=== PATIENT | male | born 1960 | race Caucasian/White ===

== ENCOUNTER 2021-01-31 13:39 | Emergency (ER) | payer OTHER ==
--- NOTE | 2021-01-31 14:57 | CR ---
Lumbar spine: AP, lateral and coned-down lateral views centered to the lumbosacral junction were obtained. Comparison: No prior lumbar spine imaging is available. Vertebral body heights and disc spaces are maintained. Minimal scattered endplate osteophytes are seen. Pedicles are intact. Visualized transverse and spinous processes are intact. Degenerative change appears to be present within the lower apophyseal joints at L5-S1. Sacroiliac joints are normal. Vascular calcification is seen within the aortoiliac vessels. Impression: 1. Slight scattered endplate osteophytes and apophyseal degenerative change at L5-S1. Vascular calcification. 2. Three-view lumbar spine study is otherwise unremarkable. Diagnostic code #2
[2021-01-31] MEDS ORDERED: predniSONE 20 MG Tab PO ONE (15:11)
--- NOTE | 2021-01-31 15:20 | EDM.PDOC ---
ED HPI GENERAL MEDICAL PROBLEM - General Chief Complaint: Back Pain or Injury Stated Complaint: BACK PAIN Time Seen by Provider: 01/31/21 14:02 Source of Information: Reports: Patient, RN Notes Reviewed History Limitations: Reports: No Limitations - History of Present Illness INITIAL COMMENTS - FREE TEXT/NARRATIVE: Patient is a 60-year-old male presenting to the emergency department with complaints of low back pain. States on Thursday of this week, he was at work lifting boards repetitively for an extended period time. After that he was taking a nap in his truck, lying on his side. Upon waking he reported low back pain. He has not fallen or specifically injured it in any way. He has been using Tylenol and lidocaine patches with little relief. Denies any bowel or jared dder dysfunction. Lower Back Pain Score (Numeric/FACES): 7 - Related Data Allergies Allergy/AdvReac Type Severity Reaction Status Date / Time aspirin Allergy Severe Hives Verified 01/31/21 14:03 ibuprofen Allergy Severe Hives Verified 01/31/21 14:03 Penicillins Allergy Severe Other Verified 01/31/21 14:03 Home Meds: Home Meds Losartan [Cozaar] 25 mg PO DAILY 03/20/19 [History] Simvastatin 20 mg PO DAILY 03/20/19 [History] hydroCHLOROthiazide [Hydrochlorothiazide] 12.5 mg PO DAILY 03/20/19 [History] metFORMIN HCl [Metformin HCl] 1,000 mg PO BID #60 tablet 03/20/19 [Rx] Hydrocodone/Acetaminophen [Hydrocodone-Acetamin 5-325 mg] 1 each PO Q4H PRN #10 tablet 01/31/21 [Rx] Multivitamin 1 each PO DAILY 01/31/21 [History] glipiZIDE [Glucotrol] 0 mg PO BID 01/31/21 [History] predniSONE [Prednisone] 20 mg PO ASDIRECTED #13 tablet 01/31/21 [Rx] traZODone 100 mg PO BEDTIME 01/31/21 [History] Past Medical History Cardiovascular History: Reports: High Cholesterol, Hypertension, Prior Cardiac Arrest Neurological History: Reports: Brain Injury Psychiatric History: Reports: PTSD Endocrine/Metabolic History: Reports: Diabetes, Type II, Obesity/BMI 30+ - Infectious Disease History Infectious Disease History: Reports: None - Past Surgical History GI Surgical History: Reports: Other (See Below) Other GI Surgeries/Procedures: Splenectomy Musculoskeletal Surgical History: Reports: Other (See Below) Other Musculoskeletal Surgeries/Procedures:: Wrist and Arm Surgery Social & Family History - Family History Family Medical History: No Pertinent Family History - Tobacco Use Tobacco Use Status *Q: Never Tobacco User - Caffeine Use Caffeine Use: Reports: Coffee, Energy Drinks - Recreational Drug Use Recreational Drug Use: No ED ROS GENERAL - Review of Systems Review Of Systems: Comprehensive ROS is negative, except as noted in HPI. ED EXAM,LOWER BACK PAIN/INJURY - Physical Exam Exam: See Below General Appearance: Alert, WD/WN, No Apparent Distress Respiratory/Chest: No Respiratory Distress, Lungs Clear, Normal Breath Sounds, No Accessory Muscle Use, Chest Non-Tender Cardiovascular: Normal Peripheral Pulses, Regular Rate, Rhythm, No Edema, No Gallop, No JVD, No Murmur, No Rub Back Exam: Normal Inspection, Paraspinal Tenderness (Bilateral low back, bilateral SI joints), Vertebral Tenderness (L5-S2) Neurological: Alert, Normal Mood/Affect, Normal Dorsiflexion, CN II-XII Intact, Normal Plantar Flexion, Normal Reflexes, No Motor/Sensory Deficits, Oriented x 3 Psychiatric: Normal Affect, Normal Mood Skin Exam: Warm, Dry, Intact, Normal Color, No Rash Course - Vital Signs Last Recorded V/S: Last Vital Signs Temp 97.4 F 01/31/21 14:00 Pulse 95 01/31/21 14:00 Resp 16 01/31/21 14:00 BP 135/78 01/31/21 14:00 Pulse Ox 94 L 01/31/21 14:00 - Orders/Labs/Meds Meds: Medications Discontinued Medications Generic Name Dose Route Start Last Admin Trade Name Phill PRN Reason Stop Dose Admin Prednisone 40 mg 01/31/21 15:11 Prednisone 20 Mg Tab PO 01/31/21 15:12 ONETIME ONE - Re-Assessments/Exams Free Text/Narrative Re-Assessment/Exam: Patient is a 60-year-old male presenting to the emergency department with complaints of low back pain. He has not fallen but he was repetitively lifting boards on Thursday. I ordered lumbar x-ray. He is allergic to ibuprofen, theref ore Toradol IM will not be given. He drove himself here, therefore he cannot get Dilaudid as he does not have anybody to pick him up. 01/31/21 15:15 Lumbar x-ray shows slight scattered endplate osteophytes and apophyseal degenerative change at L5-S1. Vascular calcification. Is otherwise unremarkable. Patient is requesting a walker. I will start him on prednisone as well as a short prescription of hydrocodone with Tylenol for pain. Discharge instructions as documented. Departure - Departure Time of Disposition: 15:17 Disposition: Home, Self-Care 01 Condition: Good Clinical Impression: Lumbar strain Qualifiers: Encounter type: initial encounter Qualified Code(s): S39.012A - Strain of muscle, fascia and tendon of lower back, initial encounter - Discharge Information *PRESCRIPTION DRUG MONITORING PROGRAM REVIEWED*: Yes *COPY OF PRESCRIPTION DRUG MONITORING REPORT IN PATIENT SYED: No Prescriptions: Hydrocodone/Acetaminophen [Hydrocodone-Acetamin 5-325 mg] 1 each PO Q4H PRN #10 tablet PRN Reason: Pain predniSONE [Prednisone] 20 mg PO ASDIRECTED #13 tablet Instructions: Muscle Strain, [id number] Referrals: PCP,Not In Area [Primary Care Provider] - Additional Instructions: You were seen in the emergency department today for low back pain since Thursday. X-rays were completed and show some degenerative changes but no fractures or other abnormalities. You have been started on prednisone which is a steroid. Take this as prescribed. Recommend routine Tylenol. For pain not relieved by this, you have been prescribed hydrocodone with Tylenol. Ensure that you are not taking more than 4000 mg of Tylenol from all sources in a 24-hour period. Use the walker as needed. You may visit with the pharmacist about a program called [employer] for discounts on your prescriptions. If you are not experiencing improvement in your symptoms by Thursday, recommend follow-up in the clinic. Return to ER as needed. Sepsis Event Note (ED) - Evaluation Sepsis Screening Result: No Definite Risk - Focused Exam Vital Signs: Vital Signs Temp Pulse Resp BP Pulse Ox 01/31/21 14:00 97.4 F 95 16 135/78 94 L
== END 2021-01-31 16:15 | disposition home or self-care (01) ==
LOC: JD.ED 13:39
DX: S39.012A Strain of muscle, fascia and tendon of lower back, initial encounter (principal); E78.00 Pure hypercholesterolemia, unspecified; I10 Essential (primary) hypertension; E11.9 Type 2 diabetes mellitus without complications; E66.9 Obesity, unspecified; Z68.36 Body mass index [BMI] 36.0-36.9, adult; Z88.6 Allergy status to analgesic agent; Z88.0 Allergy status to penicillin; Z79.84 Long term (current) use of oral hypoglycemic drugs; Z79.899 Other long term (current) drug therapy; X50.0XXA Overexertion from strenuous movement or load, initial encounter; Y92.89 Other specified places as the place of occurrence of the external cause; Y99.0 Civilian activity done for income or pay
CPT/HCPCS: 72100; 99283; J7512